=== PATIENT | female | born 1985 | race African-American/Black ===

== ENCOUNTER 2016-10-28 17:55 | Emergency (ER) | payer SELFPAY | END 2016-10-28 19:30 | disposition home or self-care (01) | LOC: ER 17:55 | DX: H10.89 Other conjunctivitis (principal); F17.210 Nicotine dependence, cigarettes, uncomplicated ==

== ENCOUNTER 2016-10-30 12:37 | Emergency (ER) | payer SELFPAY ==
[2016-10-30 12:45] VITALS: BP 138/85
[2016-10-30] MEDS ORDERED: TETRACAINE HCL 0.5% OPH SOLN 2 ML OD ONE (13:06)
[2016-10-30] MEDS ORDERED: CIPROFLOXACIN HCL 0.3% OPH SOLN 2.5 ML OD ONE (13:09)
--- NOTE | 2016-10-30 13:09 | ER Document Report ---
ED Eye Complaint - General Chief Complaint: Drainage from Eye Stated Complaint: EYE PROBLEM Time Seen by Provider: 10/30/16 12:45 TRAVEL OUTSIDE OF THE [place] IN LAST 30 DAYS: No - HPI Patient complains to provider of: eye pain and redness Onset: Other - saturday Eye location: Right Injury: No Quality of pain: Achy Pain Level: 2 Exposure: Conjunctivitis Safety glasses worn: No Contact lenses worn: No Associated symptoms: Pain, Redness, Eyelid swelling, Foreign body sensation. denies: Photophobia, Matting, Orbital swelling, Blurred vision, Double vision, Decreased vision, Loss of vision - Related Data Allergies/Adverse Reactions: Coconut * [Coconut] Allergy (Unknown, Verified 10/30/16 12:42) Past Medical History - Social History Smoking Status: Current Every Day Smoker Family History: Reviewed & Not Pertinent Patient has suicidal ideation: No Patient has homicidal ideation: No - Past Medical History Cardiac Medical History: Denies: Hx Coronary Artery Disease, Hx Hypertension Pulmonary Medical History: Denies: Hx Asthma Endocrine Medical History: Denies: Hx Diabetes Mellitus Type 1, Hx Diabetes Mellitus Type 2 Renal/ Medical History: Denies: Hx Peritoneal Dialysis - Immunizations Immunizations up to date: Yes Hx Diphtheria, Pertussis, Tetanus Vaccination: Yes Review of Systems - Review of Systems Constitutional: No symptoms reported EENT: See HPI Physical Exam - Vital signs Vitals: Temp Pulse BP Pulse Ox 98.6 F 84 138/85 H 98 10/30/16 12:44 10/30/16 12:44 10/30/16 12:44 10/30/16 12:44 - General General appearance: Appears well, Alert In distress: None - HEENT Head: Normocephalic, Atraumatic Eyes: Tears. No: Pale conjunctiva, Periorbital ecchymosis, Periorbital edema Conjunctiva: Injected. No: Purulent discharge Cornea: No: Corneal abrasion, Corneal ulcer, Dendrite, Embedded foreign body, Flourescein stain uptake, Opacified, Superficial foreign body Extraocular movements intact: Yes Eyelashes: Normal Pupils: PERRL Corrective lenses worn: No Lids everted for exam: bilateral: Normal Fundascopic: Normal Visual mendez normal: Yes - Skin Skin Temperature: Warm Skin Moisture: Dry Skin Color: Normal Skin Turgor: Elastic Course - Re-evaluation Re-evalutation: 10/30/16 13:26 Patient is a 30-year-old female who presents with persistent symptoms of conjunctivitis. Patient states that her symptoms have not improved since she started using the Polytrim drops. Offered to switch patient to Cipro which she is accepted but she states that she does not have time to go follow-up with a machine ii trimmer. Patient educated on indications to follow-up with ophthalmology later this week. Patient states that she will try but has difficulty given low income. After performing a Medical Screening Examination, I estimate there is LOW risk for a RETAINED CORNEAL or LID FOREIGN BODY, DEEP SPACE INFECTION (e.g., ORBITAL CELLULITIS OR ABSCESS), ACUTE GLAUCOMA, PENETRATING GLOBE INJURY, RETINAL DETACHMENT, or MENINGITIS thus I consider the discharge disposition reasonable. I have reevaluated this patient multiple times and no significant life threatening changes are noted. Also, there is no evidence or peritonitis, sepsis , or toxicity. The patient and I have discussed the diagnosis and risks, and we agree with discharging home with outpatient follow-up with the understanding that symptoms and presentations can change. We also discussed returning to the Emergency Department immediately if new or worsening symptoms occur. We have discussed the symptoms which are most concerning (e.g., changing or worsening pain, vision changes, neck stiffness or fever) that necessitate immediate return. - Vital Signs Vital signs: Temp Pulse Resp BP Pulse Ox 98.6 F 84 138/85 H 98 10/30/16 12:44 10/30/16 12:44 10/30/16 12:44 10/30/16 12:44 Discharge - Discharge Clinical Impression: Conjunctivitis Qualifiers: Conjunctivitis type: acute Acute conjunctivitis type: bacterial Laterality: right Qualified Code(s): H10.31 - Unspecified acute conjunctivitis, right eye Condition: Good Disposition: HOME, SELF-CARE Instructions: Antibiotic Therapy ([facility]), Conjunctivitis ([facility]), Eyedrop Use ([facility]) Additional Instructions: New eye drops: Instill 1 to 2 drops into the conjunctival sac every 2 hours while awake for 2 days and 1 to 2 drops every 4 hours while awake for the next 5 days Forms: Return to Work Referrals: SHAWN RAMIREZ MD [ACTIVE STAFF] - Follow up as needed (3-5 days)
== END 2016-10-30 13:23 | disposition home or self-care (01) ==
LOC: ER 12:37
DX: H10.31 Unspecified acute conjunctivitis, right eye (principal); B96.89 Other specified bacterial agents as the cause of diseases classified elsewhere; F17.200 Nicotine dependence, unspecified, uncomplicated
CPT/HCPCS: 99282; J3490

== ENCOUNTER 2016-11-05 12:30 | Emergency (ER) | payer SELFPAY ==
[2016-11-05] MEDS ORDERED: CEFTRIAXONE 2 GM/D5W RTU 2 GM/50 ML RTUPB IV ONE (12:58)
[2016-11-05] MEDS ORDERED: MORPHINE SULFATE 10 MG/ML INJ IV ONE (12:58)
--- NOTE | 2016-11-05 13:03 | ER Document Report ---
ED General - General Chief Complaint: Redness of Eye Stated Complaint: EYE IRRITATION Time Seen by Provider: 11/05/16 12:57 Mode of Arrival: Ambulatory Information source: Patient Notes: 30-year-old female has been here twice now in 8 days presents with worsening the eye. Patient denies any fevers or chills notes it hurts with movement of the eye. Patient was treated with Cipro drops notes it lasted for about 8 days TRAVEL OUTSIDE OF THE [place] IN LAST 30 DAYS: No - HPI Onset: Other Onset/Duration: Persistent, Worse Quality of pain: Achy Severity: Mild Pain Level: 1 Associated symptoms: Other Exacerbated by: Denies Relieved by: Denies Similar symptoms previously: Yes Recently seen / treated by doctor: Yes - Related Data Allergies/Adverse Reactions: Coconut * [Coconut] Allergy (Unknown, Verified 11/05/16 13:02) Past Medical History - Social History Smoking Status: Never Smoker Cigarette use (# per day): No Chew tobacco use (# tins/day): No Smoking Education Provided: No Family History: Reviewed & Not Pertinent - Past Medical History Cardiac Medical History: Denies: Hx Coronary Artery Disease, Hx Hypertension Pulmonary Medical History: Denies: Hx Asthma Endocrine Medical History: Denies: Hx Diabetes Mellitus Type 1, Hx Diabetes Mellitus Type 2 Renal/ Medical History: Denies: Hx Peritoneal Dialysis - Immunizations Immunizations up to date: Yes Hx Diphtheria, Pertussis, Tetanus Vaccination: Yes Review of Systems - Review of Systems Notes: REVIEW OF SYSTEMS: CONSTITUTIONAL : Denies fever, chills, or sweats. Denies recent illness. EENT: right ye pain drainage CARDIOVASCULAR: Denies chest pain. Denies palpitations or racing or irregular heart beat. Denies ankle edema. RESPIRATORY: Denies cough, cold, or chest congestion. Denies shortness of breath, difficulty breathing, or wheezing. GASTROINTESTINAL: Denies abdominal pain or distention. Denies nausea, vomiting , or diarrhea. Denies blood in vomitus, stools, or per rectum. Denies black, tarry stools. Denies constipation. GENITOURINARY: Denies difficulty urinating, painful urination, burning, frequency, blood in urine, or discharge. FEMALE GENITOURINARY: Denies vaginal bleeding, heavy or abnormal periods, irregular periods. Denies vaginal discharge or odor. MUSCULOSKELETAL: Denies back or neck pain or stiffness. Denies joint pain or swelling. SKIN: Denies rash, lesions or sores. HEMATOLOGIC : Denies easy bruising or bleeding. LYMPHATIC: Denies swollen, enlarged glands. NEUROLOGICAL: Denies confusion or altered mental status. Denies passing out or loss of consciousness. Denies dizziness or lightheadedness. Denies headache. Denies weakness or paralysis or loss of use of either side. Denies problems with gait or speech. Denies sensory loss, numbness, or tingling. Denies seizures. PSYCHIATRIC: Denies anxiety or stress. Denies depression, suicidal ideation, or homicidal ideation. ALL OTHER SYSTEMS REVIEWED AND NEGATIVE. PHYSICAL EXAMINATION: GENERAL: Well-appearing, well-nourished and in no acute distress. HEAD: Atraumatic, normocephalic. EYES: left pupil normal in appearance iwth clear liquid discharge, right eye is erythemetous there is edema of the upper and lower eye lids ENT: Nares patent, oropharynx clear without exudates. Moist mucous membranes. NECK: Normal range of motion, supple without lymphadenopathy LUNGS: Breath sounds clear to auscultation bilaterally and equal. No wheezes rales or rhonchi. HEART: Regular rate and rhythm without murmurs ABDOMEN: Soft, nontender, nondistended abdomen. No guarding, no rebound. No masses appreciated. Female : deferred Musculoskeletal: Normal range of motion, no pitting or edema. No cyanosis. NEUROLOGICAL: Cranial nerves grossly intact. Normal speech, normal gait. Normal sensory, motor exams PSYCH: Normal mood, normal affect. SKIN: Warm, Dry, normal turgor, no rashes or lesions noted. Dictation was performed using [employer] voice recognition software Physical Exam - Vital signs Vitals: Temp Pulse Resp BP Pulse Ox 98.5 F 86 12 129/82 H 100 11/05/16 12:34 11/05/16 12:34 11/05/16 12:34 11/05/16 12:34 11/05/16 12:34 Course - Re-evaluation Re-evalutation: 11/05/16 13:05 Given the patient admits pain with movement of the eye I will send her for CT orbits to rule out septal cellulitis 11/05/16 14:26 Pre-orbital cellulitis is noted. Patient will be placed on antibiotics for this given pain control and further antibiotics for the eye she must see the immigration specialist for further care After performing a Medical Screening Examination, I estimate there is LOW risk for a RETAINED CORNEAL or LID FOREIGN BODY, DEEP SPACE INFECTION (e.g., ORBITAL CELLULITIS OR ABSCESS), ACUTE GLAUCOMA, PENETRATING GLOBE INJURY, RETINAL DETACHMENT, or MENINGITIS thus I consider the discharge disposition reasonable. I have reevaluated this patient multiple times and no significant life threatening changes are noted. Also, there is no evidence or peritonitis, sepsis , or toxicity. The patient and I have discussed the diagnosis and risks, and we agree with discharging home with outpatient follow-up with the understanding that symptoms and presentations can change. We also discussed returning to the Emergency Department immediately if new or worsening symptoms occur. We have discussed the symptoms which are most concerning (e.g., changing or worsening pain, vision changes, neck stiffness or fever) that necessitate immediate return. - Vital Signs Vital signs: Temp Pulse Resp BP Pulse Ox 98.5 F 86 12 129/82 H 100 11/05/16 12:34 11/05/16 12:34 11/05/16 12:34 11/05/16 12:34 11/05/16 12:34 - Laboratory Result Diagrams: 11/05/16 13:22 11/05/16 13:22 - Diagnostic Test Radiology reviewed: Image reviewed, Reports reviewed Discharge - Discharge Clinical Impression: Preseptal cellulitis of right eye Conjunctivitis Qualifiers: Conjunctivitis type: acute Acute conjunctivitis type: bacterial Laterality: right Qualified Code(s): H10.31 - Unspecified acute conjunctivitis, right eye Condition: Stable Disposition: HOME, SELF-CARE Instructions: Conjunctivitis ([facility]) Prescriptions: Amox Tr/Potassium Clavulanate [Augmentin 875-125 Tablet] 1 tab PO BID 10 Days tablet Erythromycin Base [Erythromycin] 1 gm OU Q6 7 Days #1 oint..gm. Hydrocodone/Acetaminophen [[place] 5-325 mg Tablet] 1 tab PO Q6 #14 tablet Referrals: NAKITA HAYES MD [ACTIVE STAFF] - Follow up tomorrow
[2016-11-05 13:33] LABS: ABSOLUTE LYMPHOCYTES (AUTO) 1.7 10^3/uL (0.5-4.7); ABSOLUTE MONOCYTES (AUTO) 0.4 10^3/uL (0.1-1.4); ABSOLUTE NEUT (AUTO) 3.6 10^3/uL (1.7-8.2); BASOPHILS % (AUTO) 0.7 % (0-2); EOSINOPHILS % (AUTO) 0.3 % (0-6); HEMATOCRIT 42.9 % (36.0-47.0); HEMOGLOBIN 14.6 g/dL (12.0-15.5); HGB HCT DIFFERENCE 0.9; LYMPHOCYTES % (AUTO) 29.3 % (13-45); MEAN CORPUSCULAR HEMOGLOBIN 31.5 pg (27.0-33.4); MEAN CORPUSCULAR VOLUME 93 fl (80-97); MONOCYTES % (AUTO) 6.4 % (3-13); RED BLOOD COUNT 4.63 10^6/uL (3.72-5.28); RED CELL DISTRIBUTION WIDTH 13.4 % (11.5-14.0); SEGMENTED NEUTROPHILS % (AUTO) 63.3 % (42-78); WHITE BLOOD COUNT 5.8 10^3/uL (4.0-10.5)
[2016-11-05 13:45] LABS: ALANINE AMINOTRANSFERASE 34 U/L (9-52); ALBUMIN 4.4 g/dL (3.5-5.0); ALKALINE PHOSPHATASE 61 U/L (38-126); ANION GAP 12 (5-19); ASPARTATE AMINO TRANSFERASE 21 U/L (14-36); BILIRUBIN,DIRECT 0.4 mg/dL (0.0-0.4); BILIRUBIN,TOTAL 0.8 mg/dL (0.2-1.3); BLOOD UREA NITROGEN 10 mg/dL (7-20); CALCIUM 9.7 mg/dL (8.4-10.2); CARBON DIOXIDE 25 mmol/L (22-30); CHLORIDE 104 mmol/L (98-107); CREATININE RESULT 0.78 mg/dL (0.52-1.25); GLUCOSE 95 mg/dL (75-110); POTASSIUM 3.9 mmol/L (3.6-5.0); SODIUM 141.4 mmol/L (137-145); TOTAL PROTEIN 7.6 g/dL (6.3-8.2)
--- NOTE | 2016-11-05 14:22 | RADIOLOGY REPORT (SQ) ---
EXAM DESCRIPTION: CT ORBIT/SELLA WITH COMPLETED DATE/TIME: 11/05/2016 2:02 pm REASON FOR STUDY: right orbital edmea COMPARISON: None. TECHNIQUE: Post contrast images through the orbits windowed for bone and soft tissue. Additional co hannah and sagittal reconstructed images reviewed. All images stored on PACS. All CT scanners at this facility use dose modulation, iterative reconstruction, and/or weight based d osing when appropriate to reduce radiation dose to as low as reasonably achievable (ALARA). [facility]: Dose Right [facility]: CareDose [facility]: Dose Right [facility]: Teradose 4D [facility]: Iterate Studio CONTRAST TYPE AND DOSE: contrast/concentration: Isovue 370.00 mg/ml; Total Contrast Delivered: 75.0 ml; Total Saline Delivered: 55.0 ml RENAL FUNCTION: None required. The patient is less than 50 years old. RADIATION DOSE: Up-to-date CT equipment and radiation dose reduction techniques were employed. CTDIv ol: 30.4 mGy. DLP: 323 mGy-cm. . LIMITATIONS: None. FINDINGS: FACIAL BONES: No fracture or bone lesion. ORBITS: Intact. No fracture. Symmetric intact globes and retroorbital soft tissues. PARANASAL SINUSES: Clear. No significant mucosal thickening, mass or fluid. SOFT TISSUES: Right periorbital soft tissue swelling confined to the preseptal soft tissues. No CT ev idence of acute sinusitis. INFERIOR BRAIN: Limited view. No acute findings. OTHER: No other significant finding. IMPRESSION: RIGHT PERIORBITAL SOFT TISSUE SWELLING COMPATIBLE WITH CELLULITIS. NO INVOLVEMENT OF TH E POSTSEPTAL OR RETRO-ORBITAL SOFT TISSUES. NO DRAINABLE FLUID COLLECTION/ABSCESS PER TECHNICAL DOCUMENTATION: JOB ID: [id number] Quality ID # [id number]: Final reports with documentation of one or more dose reduction techniques (e.g., Au tomated exposure control, adjustment of the mA and/or kV according to patient size, use of iterative reconstruction technique) 2010 [employer]- All Rights Reserved
[2016-11-05 14:57] VITALS: BP 105/63
== END 2016-11-05 14:55 | disposition home or self-care (01) ==
LOC: ER 12:30
DX: L03.213 Periorbital cellulitis (principal); H10.31 Unspecified acute conjunctivitis, right eye; Z91.018 Allergy to other foods
CPT/HCPCS: 99283; 96375; 96365; 36415; 85025; 80053; 70481; J2270; J0696

== ENCOUNTER 2017-07-26 21:28 | Emergency (ER) | payer OTHER ==
[2017-07-26] MEDS ORDERED: LORAZEPAM 1 MG TABLET PO ONE (23:40)
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
[2017-07-27 00:59] LABS: ANION GAP 8 (5-19); BLOOD UREA NITROGEN 12 mg/dL (7-20); CARBON DIOXIDE 26 mmol/L (22-30); CHLORIDE 108 mmol/L (98-107); GLUCOSE 120 mg/dL (75-110); POTASSIUM 3.6 mmol/L (3.6-5.0); SODIUM 142.2 mmol/L (137-145)
[2017-07-27 03:44] VITALS: BP 117/78
--- NOTE | 2017-07-27 07:07 | EKG REPORT ---
SEVERITY:- ABNORMAL ECG - SINUS RHYTHM BIOHASIC T WAVES ANTEROSEPTAL LEADS, NONSPECIFIC, CLINICAL CORRELATION NEEDED, NO OLD EKG FOR COMPARI SON. : Confirmed by: Miguel Madison MD 27-Jul-2017 07:07:04
== END 2017-07-27 01:35 | disposition home or self-care (01) ==
LOC: ER 21:28
DX: R42 Dizziness and giddiness (principal); R20.2 Paresthesia of skin; T75.4XXA Electrocution, initial encounter; W86.0XXA Exposure to domestic wiring and appliances, initial encounter; F17.200 Nicotine dependence, unspecified, uncomplicated
CPT/HCPCS: 36415; 80048; 84484; 93005; 93010; 99284

== ENCOUNTER 2017-08-04 19:25 | Emergency (ER) | payer OTHER ==
[2017-08-04 19:58] VITALS: BP 119/71
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
--- NOTE | 2017-08-04 21:12 | RADIOLOGY REPORT (SQ) ---
EXAM DESCRIPTION: HAND RIGHT 3 VIEWS COMPLETED DATE/TIME: 08/04/2017 9:00 pm REASON FOR STUDY: injury COMPARISON: 09/16/2011. EXAM PARAMETERS: NUMBER OF VIEWS: Three views. TECHNIQUE: AP, lateral and oblique radiographic images acquired of the right hand. LIMITATIONS: None. FINDINGS: MINERALIZATION: Normal. BONES: No acute fracture or dislocation. No worrisome bone lesions. JOINTS: Stable small erosion at the base of the proximal 5th phalanx. SOFT TISSUES: No soft tissue swelling. No foreign body. OTHER: No other significant finding. IMPRESSION: NO RADIOGRAPHIC EVIDENCE OF ACUTE INJURY. TECHNICAL DOCUMENTATION: JOB ID: [id number] [employer]- All Rights Reserved Reading location - IP/workstation name: [email or web address]
[2017-08-04] MEDS ORDERED: IBUPROFEN 600 MG TABLET PO ONE (21:16)
== END 2017-08-04 23:12 | disposition home or self-care (01) ==
LOC: ER 19:25
DX: S60.221A Contusion of right hand, initial encounter (principal); M54.2 Cervicalgia; M79.602 Pain in left arm; Y04.2XXA Assault by strike against or bumped into by another person, initial encounter; W86.0XXA Exposure to domestic wiring and appliances, initial encounter; Y99.0 Civilian activity done for income or pay
CPT/HCPCS: 99283

== ENCOUNTER 2019-05-20 14:32 | Emergency (ER) | payer SELFPAY ==
[2019-05-20 14:38] VITALS: BP 139/76
[2019-05-20] MEDS ORDERED: FAMOTIDINE 20 MG TABLET PO ONE (14:44)
--- NOTE | 2019-05-20 14:44 | ER Document Report ---
HPI - HPI Time Seen by Provider: 05/20/19 14:39 Notes: Otherwise healthy 33-year-old female presenting to the emergency department chief complaint of possible itchy rash between her feet, toes and hands. Patient reports this is been intermittent over the last couple of months. She states that when it starts itching she cannot stop. She is tried multiple [id number] creams and lotions without relief. - REPRODUCTIVE Reproductive: REPORTS: : Past Medical History - General Information source: Patient - Social History Smoking Status: Never Smoker Family History: Reviewed & Not Pertinent - Medical History Medical History: Negative - Past Medical History Cardiac Medical History: Denies: Hx Coronary Artery Disease, Hx Hypertension Pulmonary Medical History: Denies: Hx Asthma Endocrine Medical History: Denies: Hx Diabetes Mellitus Type 1, Hx Diabetes Mellitus Type 2 Renal/ Medical History: Denies: Hx Peritoneal Dialysis Surgical Hx: Negative - Immunizations Immunizations up to date: Yes Hx Diphtheria, Pertussis, Tetanus Vaccination: Yes Vertical Provider Document - CONSTITUTIONAL Notes: PHYSICAL EXAMINATION: GENERAL: Well-appearing, well-nourished and in no acute distress. HEAD: Atraumatic, normocephalic. EYES: Pupils equal round extraocular movements intact, conjunctiva are normal. ENT: Nares patent NECK: Normal range of motion LUNGS: No respiratory distress Musculoskeletal: Normal range of motion NEUROLOGICAL: Normal speech, normal gait. PSYCH: Normal mood, normal affect. SKIN: Scattered erythematous rash noted between patient's toes and between fingers. - INFECTION CONTROL TRAVEL OUTSIDE OF THE [place] IN LAST 30 DAYS: No Course - Re-evaluation Re-evalutation: Exam appears to be consistent with scabies versus dermatitis. Patient will be started on appropriate medications. - Vital Signs Vital signs: Temp Pulse Resp BP Pulse Ox 98 F 84 18 139/76 H 100 05/20/19 14:37 05/20/19 14:37 05/20/19 14:37 05/20/19 14:37 05/20/19 14:37 Discharge - Discharge Clinical Impression: Rash and nonspecific skin eruption Condition: Stable Disposition: HOME, SELF-CARE Additional Instructions: Please use medications as directed. You may also take Benadryl 50 mg every 6 hours as long as you do not have to drive. Follow-up with your primary care provider. Wash all your linens and clothing tomorrow. Prescriptions: Permethrin [Acticin 5% Cream 60 gm] 60 gm TP NOW #120 gm Prednisone [Deltasone 20 mg Tablet] 3 tab PO DAILY 5 Days #15 tablet Famotidine [Pepcid 20 mg Tablet] 40 mg PO DAILY #20 tablet Forms: Return to Work
== END 2019-05-20 16:34 | disposition home or self-care (01) ==
LOC: ER 14:32
DX: R21 Rash and other nonspecific skin eruption (principal)
CPT/HCPCS: 99282